=== PATIENT | male | born 1960 ===

== ENCOUNTER 2021-09-02 07:37 | Day surgery (SDC) | payer BC ==
[~2021-09-02 07:37] MED LIST: Lactated Ringers 1,000 ML IV SCH; Lidocaine 1%/Sod Bicarbonate in NS 8.4% 1 ML Syringe IDERM PRN; Sodium Chloride 0.9% 10 ML Syringe FLUSH SCH
--- NOTE | 2021-09-02 08:15 | PCM.PREANE ---
Preanesthetic Assessment - Procedure Proposed Procedure: colonoscopy - Anesthesia/Transfusion/Family Hx Anesthesia History: Prior Anesthesia Without Reaction Family History of Anesthesia Reaction: No Transfusion History: No Prior Transfusion(s) - Review of Systems General: No Symptoms Pulmonary: No Symptoms Cardiovascular: No Symptoms Gastrointestinal: No Symptoms Neurological: No Symptoms Other: Reports: Diabetes (pre) - Physical Assessment NPO Status Date: 09/02/21 NPO Status Time: 04:30 Vital Signs: Last Vital Signs Temp 98.1 F 09/02/21 07:35 Pulse 84 09/02/21 07:35 Resp 16 09/02/21 07:35 BP 160/98 H 09/02/21 07:35 Pulse Ox 95 09/02/21 07:35 Height: 5 ft 9 in Weight: 85.729 kg ASA Class: 2 Mental Status: Alert & Oriented x3 Airway Class: Mallampati = 1 Dentition: Reports: Normal Dentition Thyro-Mental Finger Breadths: 3 Mouth Opening Finger Breadths: 3 ROM/Head Extension: Full Lungs: Clear to Auscultation, Normal Respiratory Effort Cardiovascular: Regular Rate, Regular Rhythm - Allergies Allergies/Adverse Reactions: Allergies Allergy/AdvReac Type Severity Reaction Status Date / Time atorvastatin [From Lipitor] Allergy Cannot Verified 09/02/21 07:48 Remember - Blood Blood Available: No - Acknowledgements Anesthesia Type Planned: MAC Pt an Appropriate Candidate for the Planned Anesthesia: Yes Alternatives and Risks of Anesthesia Discussed w Pt/Guardian: Yes Pt/Guardian Understands and Agrees with Anesthesia Plan: Yes PreAnesthesia Questionnaire HEENT History: Reports: Sinusitis Cardiovascular History: Reports: None Respiratory History: Reports: Sleep Apnea, Other (See Below) Other Respiratory History: upper respiratory congestion, cough, URI Gastrointestinal History: Reports: None Genitourinary History: Reports: None DOCK WORKER History: Reports: None Musculoskeletal History: Reports: None Neurological History: Reports: None Psychiatric History: Reports: Anxiety, Other (See Below) Other Psychiatric History: fatigue, insomnia Endocrine/Metabolic History: Reports: Diabetes, Type II, Vitamin D Deficiency Hematologic History: Reports: None Immunologic History: Reports: None Oncologic (Cancer) History: Reports: None Dermatologic History: Reports: Other (See Below) Other Dermatologic History: rash, tinea versicolor - Infectious Disease History Infectious Disease History: Reports: None - Past Surgical History Head Surgeries/Procedures: Reports: None HEENT Surgical History: Reports: None, Tonsillectomy Cardiovascular Surgical History: Reports: None Respiratory Surgical History: Reports: None GI Surgical History: Reports: Colonoscopy Female Surgical History: Reports: None Male Surgical History: Reports: None Endocrine Surgical History: Reports: None Neurological Surgical History: Reports: None Musculoskeletal Surgical History: Reports: None Oncologic Surgical History: Reports: None - SUBSTANCE USE Tobacco Use Status *Q: Never Tobacco User Tobacco Use Within Last Twelve Months: No Second Hand Smoke Exposure: No Days Per Week of Alcohol Use: 5 (NA beer) Number of Drinks Per Day: 2 Total Drinks Per Week: 10 Recreational Drug Use History: No - HOME MEDS Home Medications: Home Meds Aspirin 81 mg PO DAILY 09/01/21 [History] Cholecalciferol (Vitamin D3) [Vitamin D3] 5,000 unit PO DAILY 09/01/21 [History] Ciclopirox/Skin Cleanser No.28 [Ciclodan 0.77% Cream Kit] 1 dose TOP BID 09/01/21 [History] Sertraline [Zoloft] 100 mg PO DAILY 09/01/21 [History] Triamcinolone Acetonide [Triamcinolone Acetonide 0.1% Crm] 1 dose TOP BID 09/01/21 [History] Ubidecarenone [Coq-10] 100 mg PO DAILY 09/01/21 [History] Venlafaxine HCl [Venlafaxine ER] 75 mg PO DAILY 09/01/21 [History] Venlafaxine [Effexor XR] 150 mg PO DAILY 09/01/21 [History] atorvaSTATin Calcium [Atorvastatin Calcium] 80 mg PO DAILY 09/01/21 [History] metFORMIN [Glucophage XR] 500 mg PO DAILY 09/01/21 [History] - CURRENT (IN HOUSE) MEDS Current Meds: Current Medications Lactated Ringer's (Ringers, Lactated) 1,000 mls @ 125 mls/hr IV ASDIRECTED JAMIE Stop: 09/02/21 23:00 Last Admin: 09/02/21 07:49 Dose: 125 mls/hr Documented by: Lidocaine/Sodium Bicarbonate (Lidocaine 1%/Sod Bicarbonate In Ns 8.4% 1 Ml Syringe) 0.25 ml IDERM ONETIME PRN PRN Reason: Prior to IV Start Stop: 09/02/21 18:00 Sodium Chloride (Sodium Chloride 0.9% 10 Ml Syringe) 10 ml FLUSH 0900,2100 JAMIE Stop: 09/02/21 18:00
[2021-09-02] MEDS ORDERED: Propofol 200 MG/20 ML SDV ONE (08:24)
[2021-09-02] MEDS ORDERED: fentaNYL 100 MCG/2 ML SDV ONE (08:24)
[2021-09-02] MEDS ORDERED: Midazolam 1 MG/ML 2 ML SDV ONE (08:24)
--- NOTE | 2021-09-02 09:54 | PCM.PRNOTE ---
- Free Text/Narrative Note: Date: 09/02/2021 Procedure: screening colonoscopy History: normal colonoscopy 11 years ago Endoscopist: Eleuterio Thapa MD Findings: fair prep, cecum reached. Small polyp near hepatic flexure removed with cold forceps, with fulguration of tissue base. Internal hemorrhoids. Detailed Report: The patient was taken to the endoscopy suite and placed in left lateral decubitus position. Time out was performed and monitored anesthesia care initiated. The anus appeared normal. Digital exam was unremarkable. The colo noscope was inserted and advanced to the cecum. The cecum was reached and the appendiceal orifice clearly identified. Prep was fair, with sticky particulate matter throughout. The scope was slowly withdrawn and mucosal surfaces carefully inspected. One small polyp was identified near the hepatic flexure and removed entirely with cold forceps. The tissue base was fulgurated. No significant diverticular disease was appreciated. Minor internal hemorrhoidal disease was noted on retroflexion within the rectum. Air was suctioned from the distal colon and rectum prior to withdrawal of the scope. The patient tolerated the procedure well.
--- NOTE | 2021-09-02 09:59 | PCM48HPAN ---
Post Anesthesia Note - EVALUATION WITHIN 48HRS OF ANESTHETIC Vital Signs in Normal Range: Yes Patient Participated in Evaluation: Yes Respiratory Function Stable: Yes Airway Patent: Yes Cardiovascular Function Stable: Yes Hydration Status Stable: Yes Pain Control Satisfactory: Yes Nausea and Vomiting Control Satisfactory: Yes Mental Status Recovered: Yes Vital Signs: Last Vital Signs Temp 98.1 F 09/02/21 07:35 Pulse 84 09/02/21 07:35 Resp 16 09/02/21 07:35 BP 160/98 H 09/02/21 07:35 Pulse Ox 95 09/02/21 07:35 0955 132/85 93% 79 16 97.4
== END 2021-09-02 10:20 | disposition home or self-care (01) ==
LOC: JD.SDS 07:37
PROVIDERS: ATTEND Surgery
DX: Z12.11 Encounter for screening for malignant neoplasm of colon (principal); D12.3 Benign neoplasm of transverse colon; K64.8 Other hemorrhoids; F41.9 Anxiety disorder, unspecified; E11.9 Type 2 diabetes mellitus without complications; E78.5 Hyperlipidemia, unspecified; G47.00 Insomnia, unspecified; Z88.8 Allergy status to other drugs, medicaments and biological substances; Z79.82 Long term (current) use of aspirin; Z79.84 Long term (current) use of oral hypoglycemic drugs; Z79.899 Other long term (current) drug therapy; Z98.890 Other specified postprocedural states
CPT/HCPCS: 45380; J2250; J2704; J3010; J7120; 00812